=== PATIENT | female | born 2000 | race Caucasian/White ===

== ENCOUNTER 2021-07-26 19:22 | Emergency (ER) | payer BC, OTHER ==
[~2021-07-26] VITALS: Ht 167.6 cm; Wt 50.2 kg
[~2021-07-26 19:22] MED LIST: ARIP10TA33 PO; LITH600C PO; ZOLOFT
[2021-07-26 19:26] VITALS: BP 115/83
--- NOTE | 2021-07-26 20:10 | NUR ---
TASK RN: LISANDRO COLLECTED AND SENT FROM [employer]
[2021-07-26 20:42] LABS: MICROSCOPIC INDICATED
--- NOTE | 2021-07-26 22:11 | NUR ---
PT LEAVING AMA, PT SIGNED AMA PAPERWORK AND PLACED WITH CHART. PT VERBALIZED UNSTERSTANDING OF RISKS FOR LEAVING AMA.
== END 2021-07-26 22:13 | disposition left against medical advice (07) ==
LOC: EDSEX 19:22 → ED 20:00
DX: H92.03 Otalgia, bilateral (principal); J02.9 Acute pharyngitis, unspecified
CPT/HCPCS: 81001; 87077; 87086; 87186; 99283